=== PATIENT | female | born 1995 ===

== ENCOUNTER 2019-02-10 05:51 | Inpatient (IN) | payer BC, MEDICAID ==
[2019-02-10] MEDS ORDERED: Nalbuphine 10 MG/1 ML Vial IVPUSH PRN (06:15)
[2019-02-10] MEDS ORDERED: Sodium Chloride 0.9% 10 ML SDV IV PRN (06:15)
[2019-02-10] MEDS ORDERED: Misoprostol 200 MCG Tab PO PRN (06:15)
[2019-02-10] MEDS ORDERED: Lidocaine 1% 50 ML MDV INJECT PRN (06:15)
[2019-02-10] MEDS ORDERED: Ondansetron 4 MG/2 ML SDV IVPUSH PRN (06:15)
[2019-02-10] MEDS ORDERED: Sodium Chloride 0.9% 2.5 ML Syringe FLUSH PRN (06:15)
[2019-02-10] MEDS ORDERED: Tranexamic Acid 1,000 MG in Sodium Chloride 0.9% 100 ML IV PRN (06:15)
[2019-02-10] MEDS ORDERED: Water For Irrigation,Sterile 1,000 ML Container IRR PRN (06:15)
[2019-02-10] MEDS ORDERED: Sodium Chloride 0.9% 10 ML Syringe FLUSH PRN (06:15)
[2019-02-10] MEDS ORDERED: Butorphanol 1 MG/ML SDV IVPUSH PRN (06:15)
[2019-02-10] MEDS ORDERED: Oxytocin/0.9 % Sodium Chloride 30 UNIT/500 ML BAG IV SCH (06:15)
[2019-02-10] MEDS ORDERED: Methylergonovine 0.2 MG/1 ML Amp IM PRN (06:15)
[2019-02-10] MEDS ORDERED: Carboprost Tromethamine 250 MCG/1 ML Amp IM PRN (06:15)
[2019-02-10] MEDS: Lactated Ringers 1,000 ML IV SCH ×2 (10:50→16:42)
[2019-02-10] MEDS ORDERED: fentaNYL 100 MCG/2 ML SDV ONE (11:07)
[2019-02-10] MEDS ORDERED: Bupivacaine 0.25% 10 ML SDV ONE (11:07)
--- NOTE | 2019-02-10 12:08 | PCM.PREANE ---
Preanesthetic Assessment - Procedure Proposed Procedure: ARACELIS - Anesthesia/Transfusion/Family Hx Anesthesia History: No Prior Anesthesia Family History of Anesthesia Reaction: No Intubation History: Unknown - Review of Systems General: No Symptoms Pulmonary: No Symptoms Cardiovascular: No Symptoms Gastrointestinal: No Symptoms Neurological: No Symptoms Other: Reports: Anxiety - Physical Assessment ASA Class: 2 Mental Status: Alert & Oriented x3 Airway Class: Mallampati = 2 Dentition: Reports: Normal Dentition ROM/Head Extension: Full Lungs: Clear to Auscultation, Normal Respiratory Effort Cardiovascular: Regular Rate, Regular Rhythm - Lab Values: Laboratory Last Values WBC 10.45 K/uL (4.0-11.0) 02/10/19 06:37 RBC 4.25 M/uL (4.30-5.90) L 02/10/19 06:37 Hgb 12.7 g/dL (12.0-16.0) 02/10/19 06:37 Hct 38.6 % (36.0-46.0) 02/10/19 06:37 MCV 90.8 fL (80.0-98.0) 02/10/19 06:37 MCH 29.9 pg (27.0-32.0) 02/10/19 06:37 MCHC 32.9 g/dL (31.0-37.0) 02/10/19 06:37 RDW Std Deviation 44.0 fl (28.0-62.0) 02/10/19 06:37 RDW Coeff of Cheng 14 % (11.0-15.0) 02/10/19 06:37 Plt Count 217 K/uL (150-400) 02/10/19 06:37 MPV 12.00 fL (7.40-12.00) 02/10/19 06:37 Nucleated RBC % 0.0 /100WBC 02/10/19 06:37 Nucleated RBCs # 0 K/uL 02/10/19 06:37 Blood Type B POSITIVE 02/10/19 06:37 Antibody Screen NEGATIVE 02/10/19 06:37 - Allergies Allergies/Adverse Reactions: Allergies Allergy/AdvReac Type Severity Reaction Status Date / Time No Known Allergies Allergy Verified 02/09/19 11:34 - Blood Blood Available: No Product(s) Available: None - Anesthesia Plan Pre-Op Medication Ordered: None - Acknowledgements Anesthesia Type Planned: Epidural Pt an Appropriate Candidate for the Planned Anesthesia: Yes Alternatives and Risks of Anesthesia Discussed w Pt/Guardian: Yes Pt/Guardian Understands and Agrees with Anesthesia Plan: Yes PreAnesthesia Questionnaire - HOME MEDS Home Medications: Home Meds PNV95/Ferrous Fumarate/FA [ Tablet] 1 tab PO DAILY 02/09/19 [History] - CURRENT (IN HOUSE) MEDS Current Meds: Current Medications Butorphanol Tartrate (Stadol) 1 mg IVPUSH Q1H PRN PRN Reason: Pain Carboprost Tromethamine (Hemabate Ds) 250 mcg IM ASDIRECTED PRN PRN Reason: Post Hemorrhage Lactated Ringer's (Ringers, Lactated) 1,000 mls @ 150 mls/hr IV ASDIRECTED FATEM[facility] Last Admin: 02/10/19 10:50 Dose: 999 mls/hr Oxytocin/Sodium Chloride (Oxytocin 30 Unit/500 Ml-Ns) 30 unit in 500 mls @ 999 mls/hr IV TITRATE [facility] Tranexamic Acid 1,000 mg/ (Sodium Chloride) 110 mls @ 660 mls/hr IV ONETIME PRN PRN Reason: Bleeding Lidocaine HCl (Xylocaine 1%) 50 ml INJECT ONETIME PRN PRN Reason: Laceration repair Methylergonovine Maleate (Methergine) 0.2 mg IM ASDIRECTED PRN PRN Reason: Post Hemorrhage Misoprostol (Cytotec) 200 mcg PO ONETIME PRN PRN Reason: Post Hemorrhage Nalbuphine HCl (Nubain) 10 mg IVPUSH Q1H PRN PRN Reason: Pain (severe 7-10) Ondansetron HCl (Zofran) 4 mg IVPUSH Q6H PRN PRN Reason: Nausea/Vomiting Sodium Chloride (Saline Flush) 10 ml FLUSH ASDIRECTED PRN PRN Reason: Keep Vein Open Sodium Chloride (Saline Flush) 2.5 ml FLUSH ASDIRECTED PRN PRN Reason: Keep Vein Open Sodium Chloride (Normal Saline) 10 ml IV ASDIRECTED PRN PRN Reason: IV Use Sterile Water (Sterile Water For Irrigation) 1,000 ml IRR ASDIRECTED PRN PRN Reason: delivery Discontinued Medications Bupivacaine HCl (Sensorcaine-Mpf 0.25%) Confirm Administered Dose 10 ml .ROUTE .STK-MED ONE Stop: 02/10/19 11:08 Fentanyl (Sublimaze) Confirm Administered Dose 100 mcg .ROUTE .STK-MED ONE Stop: 02/10/19 11:08 Fentanyl/Bupivacaine HCl (Xcmitaxv-Tzlpk-Fp 2 Mcg/Ml-0.125%) Confirm Administered Dose 100 mls @ as directed .ROUTE .STK-MED ONE Stop: 02/10/19 11:08
[2019-02-10] MEDS ORDERED: Bisacodyl 10 MG Supp RECTAL PRN (14:59)
[2019-02-10] MEDS ORDERED: Ibuprofen 400 MG Tab PO PRN (14:59)
[2019-02-10] MEDS ORDERED: Witch Hazel Medicated Pads 40/Jar TOP PRN (14:59)
[2019-02-10] MEDS ORDERED: Lanolin 100% Cream 7 GM Tube TOP PRN (14:59)
[2019-02-10] MEDS ORDERED: Acetaminophen 500 MG Tab PO PRN ×2 (14:59)
[2019-02-10] MEDS ORDERED: Ibuprofen 800 MG Tab PO PRN (14:59)
[2019-02-10] MEDS ORDERED: Benzocaine/Menthol 20%-0.5% Spray 78 GM Cannister TOP PRN (14:59)
[2019-02-10] MEDS ORDERED: oxyCODONE 5 MG Tab PO PRN (14:59)
[2019-02-10] MEDS ORDERED: Ampicillin/Sulbactam Na 3 GM in Sodium Chloride 0.9% 100 ML IV ONE (15:00)
--- NOTE | 2019-02-10 15:03 | PCM.DEL ---
L & D Note - General Info Date of Service: 02/10/19 Mother's Due Date: 02/13/19 - Delivery Note Labor: Spontaneous Delivery Outcome: Livebirth Infant Delivery Method: Spontaneous Vaginal Delivery-Single Presentation: Left Occiput Anterior (BACILIO) Nuchal Cord: None Anesthesia Type: Epidural Laceration: 1st Degree, Periurethral Suture type: Vicryl Suture size: 3-0 Placenta: Intact Cord: 3 Vessels Estimated Blood Loss: 200 Resuscitation Needed: No Score 1 min: 7 Score 5 min: 9 Delivery Comments (Free Text/Narrative):: Live male delivered at 1432 , 7/9 , weight 3500g - General Info Date of Service: 02/10/19 - Patient Data Weight - Most Recent: 88.451 kg Lab Results Last 24 Hours: Laboratory Results - last 24 hr 02/10/19 02/10/19 Range/Units 06:37 06:37 WBC 10.45 (4.0-11.0) K/uL RBC 4.25 L (4.30-5.90) M/uL Hgb 12.7 (12.0-16.0) g/dL Hct 38.6 (36.0-46.0) % MCV 90.8 (80.0-98.0) fL MCH 29.9 (27.0-32.0) pg MCHC 32.9 (31.0-37.0) g/dL RDW Std Deviation 44.0 (28.0-62.0) fl RDW Coeff of Cheng 14 (11.0-15.0) % Plt Count 217 (150-400) K/uL MPV 12.00 (7.40-12.00) fL Nucleated RBC % 0.0 /100WBC Nucleated RBCs # 0 K/uL Blood Type B POSITIVE Antibody Screen NEGATIVE Med Orders - Current: Current Medications Acetaminophen (Tylenol Extra Strength) 500 mg PO Q4H PRN PRN Reason: Pain Acetaminophen (Tylenol Extra Strength) 1,000 mg PO Q4H PRN PRN Reason: Pain Benzocaine/Menthol (Dermoplast Pain Relief 20%-0.5% [place]) 78 gm TOP ASDIRECTED PRN PRN Reason: Perineal Comfort Measure Bisacodyl (Dulcolax) 10 mg RECTAL ONETIME PRN PRN Reason: Constipation Carboprost Tromethamine (Hemabate Ds) 250 mcg IM ASDIRECTED PRN PRN Reason: Post Hemorrhage Docusate Sodium (Colace) 100 mg PO BID PRN PRN Reason: Constipation Emollient Ointment (Lansinoh Hpa) 0 gm TOP ASDIRECTED PRN PRN Reason: Sore Nipples Lactated Ringer's (Ringers, Lactated) 1,000 mls @ 150 mls/hr IV ASDIRECTED [facility] Last Admin: 02/10/19 10:50 Dose: 999 mls/hr Oxytocin/Sodium Chloride (Oxytocin 30 Unit/500 Ml-Ns) 30 unit in 500 mls @ 999 mls/hr IV TITRATE [facility] Tranexamic Acid 1,000 mg/ (Sodium Chloride) 110 mls @ 660 mls/hr IV ONETIME PRN PRN Reason: Bleeding Ampicillin Sodium/Sulbactam (Sodium 3 gm/ Sodium Chloride) 100 mls @ 200 mls/ hr IV ONETIME ONE Stop: 02/10/19 15:29 Ibuprofen (Motrin) 400 mg PO Q4H PRN PRN Reason: Pain Ibuprofen (Motrin) 800 mg PO Q6H PRN PRN Reason: Pain Lidocaine HCl (Xylocaine 1%) 50 ml INJECT ONETIME PRN PRN Reason: Laceration repair Measles/Mumps/Rubella Vaccine Live (M-M-R Ii Vaccine) 0.5 ml SUBCUT .ONCE ONE Stop: 02/11/19 15:00 Methylergonovine Maleate (Methergine) 0.2 mg IM ASDIRECTED PRN PRN Reason: Post Hemorrhage Misoprostol (Cytotec) 200 mcg PO ONETIME PRN PRN Reason: Post Hemorrhage Ondansetron HCl (Zofran) 4 mg IVPUSH Q6H PRN PRN Reason: Nausea/Vomiting Oxycodone HCl (Oxycodone) 5 mg PO Q2H PRN PRN Reason: Pain Sodium Chloride (Saline Flush) 10 ml FLUSH ASDIRECTED PRN PRN Reason: Keep Vein Open Sodium Chloride (Saline Flush) 2.5 ml FLUSH ASDIRECTED PRN PRN Reason: Keep Vein Open Sodium Chloride (Normal Saline) 10 ml IV ASDIRECTED PRN PRN Reason: IV Use Witch Suad (Tucks) 1 pad TOP ASDIRECTED PRN PRN Reason: comfort care Discontinued Medications Bupivacaine HCl (Sensorcaine-Mpf 0.25%) Confirm Administered Dose 10 ml .ROUTE .STK-MED ONE Stop: 02/10/19 11:08 Butorphanol Tartrate (Stadol) 1 mg IVPUSH Q1H PRN PRN Reason: Pain Fentanyl (Sublimaze) Confirm Administered Dose 100 mcg .ROUTE .STK-MED ONE Stop: 02/10/19 11:08 Fentanyl/Bupivacaine HCl (Rqalsevp-Zqofg-Os 2 Mcg/Ml-0.125%) Confirm Administered Dose 100 mls @ as directed .ROUTE .STK-MED ONE Stop: 02/10/19 11:08 Nalbuphine HCl (Nubain) 10 mg IVPUSH Q1H PRN PRN Reason: Pain (severe 7-10) Sterile Water (Sterile Water For Irrigation) 1,000 ml IRR ASDIRECTED PRN PRN Reason: delivery - Problem List & Annotations (1) Vaginal delivery SNOMED Code(s): 774476136 Code(s): O80 - ENCOUNTER FOR FULL-TERM UNCOMPLICATED DELIVERY Status: Acute Current Visit: Yes - Problem List Review Problem List Initiated/Reviewed/Updated: Yes - My Orders Last 24 Hours: My Active Orders 02/10/19 14:59 Acetaminophen [Tylenol Extra Strength] 1,000 mg PO Q4H PRN Acetaminophen [Tylenol Extra Strength] 500 mg PO Q4H PRN Benzocaine/Menthol [Dermoplast Pain Relief 20%-0.5% [place]] 78 gm TOP ASDIRECTED PRN Bisacodyl [Dulcolax] 10 mg RECTAL ONETIME PRN Docusate Sodium [Colace] 100 mg PO BID PRN Ibuprofen [Motrin] 400 mg PO Q4H PRN Ibuprofen [Motrin] 800 mg PO Q6H PRN Lanolin [Lansinoh HPA] See Dose Instructions TOP ASDIRECTED PRN Witch Suad [Tucks] 1 pad TOP ASDIRECTED PRN oxyCODONE 5 mg PO Q2H PRN 02/10/19 15:00 May Shower [RC] ASDIRECTED Up ad Mari [RC] ASDIRECTED Vital Signs [RC] PER UNIT ROUTINE Ampicillin/Sulbactam Na [Unasyn] 3 gm Sodium Chloride 0.9% [Normal Saline] 100 ml IV ONETIME Assess Lochia [WOMSER] Per Unit Routine Assess Uterine Involution [WOMSER] Per Unit Routine Peripheral IV Discontinue [OM.PC] Routine 02/11/19 05:11 HEMOGLOBIN/HEMATOCRIT,HH [HEME] Timed 02/11/19 14:59 Measles, Mumps & Rubella [M-M-R II Vaccine] 0.5 ml SUBCUT .ONCE ONE
[2019-02-10] MEDS: Docusate Sodium 100 MG Cap PO PRN (19:52)
[2019-02-11] MEDS: Docusate Sodium 100 MG Cap PO PRN (07:54)
--- NOTE | 2019-02-11 11:50 | PCM48HPAN ---
Post Anesthesia Note - EVALUATION WITHIN 48HRS OF ANESTHETIC Vital Signs in Normal Range: Yes Patient Participated in Evaluation: Yes (Denies any complaints) Respiratory Function Stable: Yes Airway Patent: Yes Cardiovascular Function Stable: Yes Hydration Status Stable: Yes Pain Control Satisfactory: Yes Nausea and Vomiting Control Satisfactory: Yes Mental Status Recovered: Yes Resp Rate: 18
[2019-02-11] MEDS ORDERED: Measles, Mumps & Rubella Vaccine 0.5 ML SDV SUBCUT ONE (14:59)
--- NOTE | 2019-02-11 17:15 | PCM.PNPP ---
- General Info Date of Service: 02/11/19 Subjective Update: 23 yo P1 s/p PPD1 denies any complains she is ambulating , voiding and tolerating regular diet Functional Status: Reports: Pain Controlled, Tolerating Diet, Ambulating, Urinating - Review of Systems General: Reports: No Symptoms HEENT: Reports: No Symptoms Pulmonary: Reports: No Symptoms Cardiovascular: Reports: No Symptoms Gastrointestinal: Reports: No Symptoms Genitourinary: Reports: No Symptoms Musculoskeletal: Reports: No Symptoms Skin: Reports: No Symptoms Neurological: Reports: No Symptoms Psychiatric: Reports: No Symptoms - General Info Date of Service: 02/11/19 - Patient Data Vital Signs - Most Recent: Last Vital Signs Temp 36.5 C 02/11/19 16:31 Pulse 57 L 02/11/19 16:31 Resp 16 02/11/19 16:31 BP 101/52 L 02/11/19 16:31 Pulse Ox 97 02/11/19 16:31 Weight - Most Recent: 88.451 kg Lab Results - Last 24 Hours: Laboratory Results - last 24 hr 02/11/19 Range/Units 05:28 Hgb 11.0 L (12.0-16.0) g/dL Hct 33.5 L (36.0-46.0) % Med Orders - Current: Current Medications Acetaminophen (Tylenol Extra Strength) 500 mg PO Q4H PRN PRN Reason: Pain Acetaminophen (Tylenol Extra Strength) 1,000 mg PO Q4H PRN PRN Reason: Pain Last Admin: 02/11/19 07:54 Dose: 1,000 mg Benzocaine/Menthol (Dermoplast Pain Relief 20%-0.5% [place]) 78 gm TOP ASDIRECTED PRN PRN Reason: Perineal Comfort Measure Last Admin: 02/10/19 19:52 Dose: 78 gm Bisacodyl (Dulcolax) 10 mg RECTAL ONETIME PRN PRN Reason: Constipation Carboprost Tromethamine (Hemabate Ds) 250 mcg IM ASDIRECTED PRN PRN Reason: Post Hemorrhage Docusate Sodium (Colace) 100 mg PO BID PRN PRN Reason: Constipation Last Admin: 02/11/19 07:54 Dose: 100 mg Emollient Ointment (Lansinoh Hpa) 0 gm TOP ASDIRECTED PRN PRN Reason: Sore Nipples Lactated Ringer's (Ringers, Lactated) 1,000 mls @ 150 mls/hr IV ASDIRECTED [facility] Last Admin: 02/10/19 16:42 Dose: 50 mls/hr Oxytocin/Sodium Chloride (Oxytocin 30 Unit/500 Ml-Ns) 30 unit in 500 mls @ 999 mls/hr IV TITRATE [facility] Tranexamic Acid 1,000 mg/ (Sodium Chloride) 110 mls @ 660 mls/hr IV ONETIME PRN PRN Reason: Bleeding Ibuprofen (Motrin) 400 mg PO Q4H PRN PRN Reason: Pain Ibuprofen (Motrin) 800 mg PO Q6H PRN PRN Reason: Pain Last Admin: 02/10/19 23:52 Dose: 800 mg Lidocaine HCl (Xylocaine 1%) 50 ml INJECT ONETIME PRN PRN Reason: Laceration repair Methylergonovine Maleate (Methergine) 0.2 mg IM ASDIRECTED PRN PRN Reason: Post Hemorrhage Misoprostol (Cytotec) 200 mcg PO ONETIME PRN PRN Reason: Post Hemorrhage Ondansetron HCl (Zofran) 4 mg IVPUSH Q6H PRN PRN Reason: Nausea/Vomiting Oxycodone HCl (Oxycodone) 5 mg PO Q2H PRN PRN Reason: Pain Sodium Chloride (Saline Flush) 10 ml FLUSH ASDIRECTED PRN PRN Reason: Keep Vein Open Sodium Chloride (Saline Flush) 2.5 ml FLUSH ASDIRECTED PRN PRN Reason: Keep Vein Open Sodium Chloride (Normal Saline) 10 ml IV ASDIRECTED PRN PRN Reason: IV Use Witch Suad (Tucks) 1 pad TOP ASDIRECTED PRN PRN Reason: comfort care Last Admin: 02/10/19 19:52 Dose: 1 pad Discontinued Medications Bupivacaine HCl (Sensorcaine-Mpf 0.25%) Confirm Administered Dose 10 ml .ROUTE .STK-MED ONE Stop: 02/10/19 11:08 Butorphanol Tartrate (Stadol) 1 mg IVPUSH Q1H PRN PRN Reason: Pain Fentanyl (Sublimaze) Confirm Administered Dose 100 mcg .ROUTE .STK-MED ONE Stop: 02/10/19 11:08 Fentanyl/Bupivacaine HCl (Xiiyhfle-Snayv-Ff 2 Mcg/Ml-0.125%) Confirm Administered Dose 100 mls @ as directed .ROUTE .STK-MED ONE Stop: 02/10/19 11:08 Ampicillin Sodium/Sulbactam (Sodium 3 gm/ Sodium Chloride) 100 mls @ 200 mls/ hr IV ONETIME ONE Stop: 02/10/19 15:29 Last Admin: 02/10/19 16:42 Dose: 200 mls/hr Measles/Mumps/Rubella Vaccine Live (M-M-R Ii Vaccine) 0.5 ml SUBCUT .ONCE ONE Stop: 02/11/19 15:00 Nalbuphine HCl (Nubain) 10 mg IVPUSH Q1H PRN PRN Reason: Pain (severe 7-10) Sterile Water (Sterile Water For Irrigation) 1,000 ml IRR ASDIRECTED PRN PRN Reason: delivery Last Admin: 02/10/19 16:42 Dose: 1,000 ml - Interaction Support Person: Mother, Significant Other - Recovery Exam Fundal Tone: Firm Fundal Level: At Umbilicus Fundal Placement: Midline Lochia Amount: Scant Lochia Color: Rubra/Red Perineum Description: Other (see below) Other Perinuem Description: 1st deg laceration Episiotomy/Laceration: Approximated Bladder Status: Voiding Urinary Elimination: Voided - Exam General: Alert HEENT: Pupils Equal Neck: Supple Lungs: Clear to Auscultation Cardiovascular: Regular Rate, Regular Rhythm GI/Abdominal Exam: Normal Bowel Sounds Extremities: Normal Inspection Wound/Incisions: Healing Well - Problem List & Annotations (1) Vaginal delivery SNOMED Code(s): 814748691 Code(s): O80 - ENCOUNTER FOR FULL-TERM UNCOMPLICATED DELIVERY Status: Acute Current Visit: Yes - Problem List Review Problem List Initiated/Reviewed/Updated: Yes - Assessment Assessment:: 23yo P1 PPD1 normal lochia , , tolerating regular diet - Plan Plan:: Discharge home today Routine care
--- NOTE | 2019-02-11 18:10 | OR ---
SURGEON: PHILIP PARDO DATE OF PROCEDURE:02/10/2019 PREOPERATIVE DIAGNOSIS: A 23-year-old, G1, P0, at 39 weeks and 4 days in early labor. POSTOPERATIVE DIAGNOSIS: A 23-year-old, G1, P0, at 39 weeks and 4 days in early labor. Ist Degree Laceration Periurethral Laceration PROCEDURE: Normal spontaneous vaginal delivery Repair of bilateral periurethral laceration Repair of first-degree vaginal laceration. ANESTHESIA: Epidural. ESTIMATED BLOOD LOSS: 300. FINDINGS: Live male delivered at 1432 , 7/9 , weight 3500g BRIEF HISTORY: She is a 23-year-old G1, P0, who came in complaining of contractions. When she came in, she was found to be 5 to 6 cm dilated. The patient was allowed to progress. AROM was performed. Clear fluid was noted. The patient had a normal labor course; however, she was having some decelerations with the contractions while pushing. When she was fully dilated, she was encouraged to push. The patient had good pushing effort. DESCRIPTION OF PROCEDURE: With good pushing effort, she delivered the head, subsequently by the anterior and posterior shoulder. The body of the was delivered. The was placed on the maternal abdomen. Pitocin was started. The cord was clamped and cut. The was handed over to the awaiting nursery nurse. The placenta was delivered via controlled cord traction. Then, the bilateral urethral laceration was sutured with 3-0 Vicryl on an SH needle . All instrument and pad count were correct x2. The patient tolerated the procedure well and was left in delivery room in stable condition. LIDA RAMOS /[id number] MTDD
== END 2019-02-11 18:35 | disposition home or self-care (01) | DRG 560 ==
LOC: MW.OBCHECK 05:51 → MW.OB 05:52 → MW.OBCHECK 06:15 → MW.OB 06:15 → OBSVTOIN 14:32 → MW.OB 20:26
PROVIDERS: ADMIT Obstetrics & Gynecology; ATTEND Obstetrics & Gynecology
PROC: 10E0XZZ Delivery of Products of Conception, External Approach (ICD-10-PCS; principal; 2019-02-10)
PROC: 0HQ9XZZ Repair Perineum Skin, External Approach (ICD-10-PCS; 2019-02-10)
PROC: 10907ZC Drainage of Amniotic Fluid, Therapeutic from Products of Conception, Via Natural or Artificial Opening (ICD-10-PCS; 2019-02-10)
PROC: 0UQMXZZ Repair Vulva, External Approach (ICD-10-PCS; 2019-02-10)
PROC: 3E0R3BZ Introduction of Anesthetic Agent into Spinal Canal, Percutaneous Approach (ICD-10-PCS; 2019-02-10)
PROC: 00HU33Z Insertion of Infusion Device into Spinal Canal, Percutaneous Approach (ICD-10-PCS; 2019-02-10)
DX: O70.0 First degree perineal laceration during delivery (principal); Z3A.39 39 weeks gestation of pregnancy; Z37.0 Single live birth; O71.82 Other specified trauma to perineum and vulva; O76 Abnormality in fetal heart rate and rhythm complicating labor and delivery
CPT/HCPCS: 36415; 59025; 59409; 85014; 85018; 85027; 86850; 86900; 86901; 90707; A9270-GY; J0295; J3010; J3490; J7030; J7120